=== PATIENT | female | born 1960 | race Caucasian/White ===

== ENCOUNTER → 2024-05-15 15:02 | Outpatient (REF) | payer BC, SELFPAY | LOC: HWWDC 15:02 | PROVIDERS: ATTENDING PHYSICIAN Obstetrics & Gynecology Gynecology; FAMILY PHYSICIAN Internal Medicine | DX: Z12.31 Encounter for screening mammogram for malignant neoplasm of breast (principal) | CPT/HCPCS: 77063; 77067 ==

== ENCOUNTER → 2024-05-19 13:14 | Outpatient (REF) | payer BC, SELFPAY | LOC: HWRAD 13:14 | PROVIDERS: ATTENDING PHYSICIAN Obstetrics & Gynecology Gynecology; FAMILY PHYSICIAN Internal Medicine | DX: N93.0 Postcoital and contact bleeding (principal) | CPT/HCPCS: 76830; 76856 ==

== ENCOUNTER → 2024-08-10 13:18 | Outpatient (REF) | payer OTHER, SELFPAY | LOC: HWRAD 13:18 | PROVIDERS: ATTENDING PHYSICIAN Obstetrics & Gynecology Gynecology; FAMILY PHYSICIAN Internal Medicine | DX: N83.201 Unspecified ovarian cyst, right side (principal) | CPT/HCPCS: 76830; 76856 ==

== ENCOUNTER → 2024-09-26 07:45 | Outpatient (REF) | payer OTHER, SELFPAY | LOC: MRI 07:45 | PROVIDERS: ATTENDING PHYSICIAN Obstetrics & Gynecology Gynecology; FAMILY PHYSICIAN Internal Medicine | DX: R19.00 Intra-abdominal and pelvic swelling, mass and lump, unspecified site (principal) | CPT/HCPCS: 72197; A9575 ==

== ENCOUNTER → 2024-10-29 14:05 | Outpatient (REF) | payer OTHER, SELFPAY | LOC: RAD 14:05 | PROVIDERS: ATTENDING PHYSICIAN Obstetrics & Gynecology Gynecology; FAMILY PHYSICIAN Internal Medicine | DX: K63.89 Other specified diseases of intestine (principal) | CPT/HCPCS: 74178; Q9967 ==

== ENCOUNTER 2025-01-13 05:58 | Day surgery (SDC) | payer OTHER, SELFPAY ==
[2024-12-28 11:19] LABS: Hematocrit 38.5 % (37.0-47.0); Hemoglobin 13.1 g/dL (12.0-16.0); Mean Corp Hgb Conc. 34.0 g/dL (33.0-37.0); Mean Corpuscular Volume 86.1 fL (81.0-99.0); Platelet Count 222 10^3/uL (130-400); Red Cell Dist. Width 12.8 % (11.5-14.5)
[2024-12-28 11:43] LABS: ALT (SGPT) 19 U/L (0-35); AST (SGOT) 26 U/L (14-36); Albumin 4.5 g/dl (3.5-5.0); Alkaline Phosphatase 54 U/L (38-126); Blood Urea Nitrogen 13 mg/dl (7-17); Calcium 9.1 mg/dl (8.4-10.2); Carbon Dioxide 29 mmol/L (22-30); Chloride 105 mmol/L (98-107); Glucose 86 mg/dl (70-99); Potassium 4.0 mmol/L (3.5-5.1); Sodium 137 mmol/L (135-145); Total Protein 6.7 g/dl (6.3-8.2); eGFR > 60.00
[2024-12-28 12:12] LABS: CEA 1.82 ng/ml
[2024-12-28 14:15] VITALS: BMI 18.3
[2024-12-29 18:36] LABS: CA 19-9 21 U/mL (<=35)
[2025-01-13] VITALS (7 sets, daily range): BP systolic 116–122; BP diastolic 57–71; BMI 18.3
[2025-01-13] MEDS: TYLENOL 1000 MG PO (06:37)
[2025-01-13] MEDS: NORMOSOL-R/PLASMALYTE-A 1000 IV (06:38)
--- NOTE | 2025-01-13 08:23 | W.SUR.POST ---
Surgical Immediate Post Op
Note
Pre Op Diagnosis: right ovarian mass, stress incontinence, intrinsic sphincter deficiency
Post Op Diagnosis: right ovarian mass, stress incontinence, intrinsic sphincter deficiency
Procedure Performed: laparoscopic right salpingooophorectomy, urethral bulking with Bulkamid
Primary Surgeon: Noel Hancock MD
Secondary Surgeons: GOMEZ Redding
Anesthesia: General with ET tube
Estimated Blood Loss: 5 mL
Complications: none
Operative Findings: no left adnexal pathology
== END 2025-01-13 10:30 | disposition home or self-care (01) ==
LOC: SDS 05:58
PROVIDERS: ATTENDING PHYSICIAN Surgery; FAMILY PHYSICIAN Internal Medicine; OTHER PHYSICIAN Obstetrics & Gynecology
DX: C18.1 Malignant neoplasm of appendix (principal); N83.291 Other ovarian cyst, right side; N39.3 Stress incontinence (female) (male); N36.42 Intrinsic sphincter deficiency (ISD)
CPT/HCPCS: 44970; 58661; 51715; 36415; 80053; 82378; 85027; 86301; 86850; 86900; 86901; 88304; 88305; 88311; 88341; 88342; 93005; L8606

== ENCOUNTER 2025-04-26 06:18 | Day surgery (SDC) | payer OTHER, SELFPAY | END 2025-04-26 11:01 | disposition home or self-care (01) | LOC: GI 06:18 | PROVIDERS: ATTENDING PHYSICIAN Internal Medicine; FAMILY PHYSICIAN Internal Medicine | DX: R19.4 Change in bowel habit (principal); Q43.8 Other specified congenital malformations of intestine; R10.13 Epigastric pain; R14.0 Abdominal distension (gaseous); K29.70 Gastritis, unspecified, without bleeding | CPT/HCPCS: 43239; 45378; 88305; 88342 ==

== ENCOUNTER → 2025-06-02 13:20 | Outpatient (REF) | payer OTHER, SELFPAY | LOC: HWRAD 13:20 | PROVIDERS: ATTENDING PHYSICIAN Obstetrics & Gynecology Gynecology; FAMILY PHYSICIAN Internal Medicine | DX: N93.0 Postcoital and contact bleeding (principal) | CPT/HCPCS: 76830; 76856 ==